=== PATIENT | female | born 1965 | race Caucasian/White ===

== ENCOUNTER 2025-01-08 15:19 | Emergency (ER) | payer OTHER ==
[~2025-01-08] VITALS: Ht 154.9 cm; Wt 91.0 kg
[~2025-01-08 15:19] MED LIST: FERR325T27 PO
[2025-01-08 15:21] VITALS: BP 141/91; PULSE 93; RESP 18; TEMP 97.8; O2SAT 97
== END 2025-01-08 17:38 | disposition left against medical advice (07) ==
LOC: EMS 15:19
DX: M79.605 Pain in left leg (principal); Z53.21 Procedure and treatment not carried out due to patient leaving prior to being seen by health care provider